=== PATIENT | male | born 1970 | race Caucasian/White ===

== ENCOUNTER 2016-06-16 13:15 | Emergency (ER) | payer OTHER ==
[2016-06-16 13:54] VITALS: BP 135/74
--- NOTE | 2016-06-16 15:29 | UC ---
Throat Pain/Nasal Geovani HPI - HPI Summary HPI Summary: has been sick on/off for the past 6 weeks now has worsening sinus and chest congestion, hurts to cough - History of Current Complaint Chief Complaint: UCRespiratory Stated Complaint: CONGEST/HEAD PRESSURE Time Seen by Provider: 06/16/16 15:22 - Allergies/Home Medications Allergies/Adverse Reactions: Allergies Allergy/AdvReac Type Severity Reaction Status Date / Time No Known Allergies Allergy Verified 06/16/16 13:55 PMH/Surg Hx/FS Hx/Imm Hx Previously Healthy: Yes Endocrine History Of: Denies: Diabetes Cardiovascular History Of: Denies: Hypertension, Pacemaker/ICD Respiratory History Of: Denies: Asthma - Surgical History Surgical History: Yes Surgery Procedure, Year, and Place: ORIF RT LOWER LEG, - Family History Known Family History: Positive: None Family History: denies cardio vascular diseas in family lineage - Social History Occupation: Employed Full-time - self employeed [place] Lives: With Family Alcohol Use: None Substance Use Type: None Smoking Status (MU): Never Smoked Tobacco Review of Systems Constitutional: Chills, Fatigue Skin: Negative Eyes: Negative ENT: Negative Respiratory: Cough Cardiovascular: Negative Gastrointestinal: Negative Genitourinary: Negative Motor: Negative Neurovascular: Negative Musculoskeletal: Negative Neurological: Negative Psychological: Negative All Other Systems Reviewed And Are Negative: Yes Physical Exam Triage Information Reviewed: Yes Appearance: Well-Appearing, No Pain Distress, Well-Nourished Vital Signs: Initial Vital Signs Temp 99.7 F 06/16/16 13:49 Pulse 92 06/16/16 13:49 Resp 20 06/16/16 13:49 BP 135/74 06/16/16 13:49 Pulse Ox 94 06/16/16 13:49 Eye Exam: Normal Eyes: Positive: Conjunctiva Clear ENT Exam: Normal ENT: Positive: Normal ENT inspection, Hearing grossly normal, Pharynx normal. Negative: Nasal congestion, Nasal drainage, Tonsillar swelling, Tonsillar exudate, Trismus, Muffled/hoarse voice Dental Exam: Normal Neck exam: Normal Neck: Positive: Supple, Nontender, No Lymphadenopathy Respiratory Exam: Normal Respiratory: Positive: Chest non-tender, Lungs clear, Normal breath sounds, No respiratory distress, No accessory muscle use Cardiovascular Exam: Normal Cardiovascular: Positive: RRR, No Murmur, Pulses Normal, Brisk Capillary Refill Musculoskeletal Exam: Normal Musculoskeletal: Positive: Strength Intact, ROM Intact, No Edema Neurological Exam: Normal Neurological: Positive: Alert, Muscle Tone Normal Psychological Exam: Normal Skin Exam: Normal Throat Pain/Nasal Course/Dx - Course Assessment/Plan: zithromax, albuterol, mucolytic, decongestant, increase fluids follow with pcp - Differential Dx/Diagnosis Differential Diagnosis/HQI/PQRI: Influenza, Laryngitis, Pharyngitis, Sinusitis, URI Provider Diagnoses: Bronchitis Discharge - Discharge Plan Condition: Stable Disposition: HOME Prescriptions: Albuterol HFA INHALER* [Ventolin HFA Inhaler*] 2 puff INH Q4H PRN #1 mdi PRN Reason: cough Azithromycin TAB* [Zithromax TAB (Z-VERITO) 250 mg #6 tabs] 2 tab PO .TODAY, THEN 1 DAILY #1 verito Patient Education Materials: Bronchospasm (ED), Acute Bronchitis (ED), Azithromycin (By mouth), Albuterol (By breathing), How to Use a Metered-Dose Inhaler (ED), Decongestant/Expectorant (By mouth) Referrals: Colt Douglas MD [Primary Care Provider] - If Needed
== END 2016-06-16 15:34 | disposition home or self-care (01) ==
LOC: UCEAST 13:15
DX: J40 Bronchitis, not specified as acute or chronic (principal)
CPT/HCPCS: 99212; G0463

== ENCOUNTER 2018-02-24 20:26 | Emergency (ER) | payer OTHER ==
[2018-02-24 20:35] VITALS: BP 130/82
--- NOTE | 2018-02-24 20:38 | UC ---
Eye Complaint HPI - HPI Summary HPI Summary: 47 yo male presents with left eye ?FB. 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 All last night it was itchy and felt something underneath his upper eyelid. Today it felt fine, but tonight his symptoms returned. He does not wear glasses or contacts. Denies change in vision. - History of Current Complaint Chief Complaint: UCEye Stated Complaint: F.O. IN EYE Time Seen by Provider: 02/24/18 20:37 Hx Obtained From: Patient Onset/Duration: Sudden Onset Timing: Constant Severity Initially: Mild Severity Currently: Mild Pain Intensity: 1 - Allergies/Home Medications Allergies/Adverse Reactions: Allergies Allergy/AdvReac Type Severity Reaction Status Date / Time No Known Allergies Allergy Verified 02/24/18 20:35 Home Medications: Home Medications NK [No Home Medications Reported] 02/24/18 [History Confirmed 02/24/18] PMH/Surg Hx/FS Hx/Imm Hx - Additional Past Medical History Additional PMH: None - Surgical History Surgical History: Yes Surgery Procedure, Year, and Place: ORIF RT LOWER LEG, - Family History Known Family History: Positive: None Family History: denies cardio vascular diseas in family lineage - Social History Occupation: Employed Full-time Lives: With Family Alcohol Use: None Substance Use Type: None Smoking Status (MU): Never Smoked Tobacco Review of Systems Constitutional: Negative Skin: Negative Eyes: Eye Redness - left ENT: Negative Respiratory: Negative Neurological: Negative Psychological: Negative All Other Systems Reviewed And Are Negative: Yes Physical Exam - Summary Physical Exam Summary: GENERAL: WDWN. No pain distress. SKIN: No rashes, sores, lesions, or open wounds. HEENT: Head: AT/NC Eyes: EOM intact. PERRLA. LEFT EYE: Mild scleral injection. No appreciable FB in eye or underneath upper/lower eyelid. Fluorescein dye exam: no increased uptake. No corneal abrasion. No ileana sign. CHEST: No accessory muscle use. Breathing comfortably and in no distress. CV: Pulses intact. Cap refill <2seconds NEURO: Alert. PSYCH: Age appropriate behavior. Triage Information Reviewed: Yes Vital Signs: Initial Vital Signs Temp 97.7 F 02/24/18 20:31 Pulse 68 02/24/18 20:31 Resp 16 02/24/18 20:31 BP 130/82 02/24/18 20:31 Pulse Ox 96 02/24/18 20:31 Vital Signs Reviewed: Yes Eye Complaint Course/Dx - Course Course Of Treatment: Two drops of tetracaine were instilled into the left eye and a sterile cotton swab was used to sweep the underneath of the upper and lower eyelid. No appreciable FB was found or removed. Fluorescein exam normal. Pt experienced full resolution of his symptoms. I will discharge him with saline eye drops to lubricate his eye for the next few days due to irritation. - Differential Dx/Diagnosis Provider Diagnoses: Left eye FB Discharge - Sign-Out/Discharge Documenting (check all that apply): Patient Departure All imaging exams completed and their final reports reviewed: No Studies - Discharge Plan Condition: Stable Disposition: HOME Patient Education Materials: Eye Foreign Body (ED) Referrals: Colt Douglas MD [Primary Care Provider] - Additional Instructions: If you develop a fever, shortness of breath, chest pain, new or worsening symptoms - please call your PCP or go to the ED. Your blood pressure was mildly elevated at todays visit. Please see your primary provider within 4 weeks for recheck and re-evaluation. - Billing Disposition and Condition Condition: STABLE Disposition: Home - Attestation Statements Provider Attestation: Per institutional requirements, I have reviewed the chart, however, I was not consulted specifically or made aware of this patient by the midlevel provider. I did not personally evaluate, interact with , or disposition this patient.
[2018-02-24] MEDS ORDERED: Tetracaine 0.5% OPTH.SOL 4 ML* 1 DROP BTL BOTH EYES ONE (20:39)
[2018-02-24] MEDS ORDERED: Fluorescein Sodium TOPICAL* 1 MG TEST STRIP OPHTHALMIC ONE (20:39)
[2018-02-24] MEDS ORDERED: Eye Irrigation Solution 30 ML BOTTLE LEFT EYE ONE (20:58)
[2018-02-24] MEDS ORDERED: Eye Irrigation Solution 30 ML BOTTLE ONE (21:05)
== END 2018-02-24 21:13 | disposition home or self-care (01) ==
LOC: UCEAST 20:26
DX: T15.92XA Foreign body on external eye, part unspecified, left eye, initial encounter (principal); X58.XXXA Exposure to other specified factors, initial encounter; Y92.9 Unspecified place or not applicable
CPT/HCPCS: 99212; A9270-GY; G0463